=== PATIENT | female | born 1980 | race Caucasian/White ===

== ENCOUNTER → 2016-08-01 | Outpatient (CLI) | payer OTHER ==
[~2016-08-01] MED LIST: CLC100 PO; INSDGI SC; MTR600X PO; OXYC-57 PO; PRENTAB26 PO
== END | disposition home or self-care (01) ==
LOC: C.PAPS 08:44
PROVIDERS: ATTEND Obstetrics & Gynecology
DX: O09.291 Supervision of pregnancy with other poor reproductive or obstetric history, first trimester (principal)

== ENCOUNTER → 2016-08-01 | Outpatient (CLI) | payer OTHER ==
[2016-08-01 17:38] LABS: BASO % 0.2 %; BASO ABS # 0.02 K/uL (0-0.2); COMPLETE YES; EOS % 0.7 %; HEMATOCRIT 36.9 % (37-47); IG% 0.3 %; LYMPH % 24.2 %; LYMPH ABS # 2.42 K/uL (1.2-3.4); MEAN CELL VOLUME 89.6 fL (80-100); MEAN CORPUSCULAR HEMOGLOBIN 31.8 pg (25-34); MEAN CORPUSCULAR HGB CONC 35.5 g/dl (32-36); MEAN PLATELET VOLUME 11.5 fL (7.4-10.4); MONO % 8.3 %; NEUT % 66.3 %; PLATELET COUNT 220 K/uL (130-400); RED BLOOD COUNT 4.12 M/uL (4.2-5.4)
[2016-08-02 10:15] LABS: MANUAL MICROSCOPIC REQUIRED? NO; REVIEW REQ? YES; URINE EPITHELIAL CELL AUTO >30 /lpf (0-5)
[2016-08-02 10:16] LABS: URINE APPEARANCE CLEAR (CLEAR); URINE BILIRUBIN NEG (NEG); URINE COLOR YELLOW; URINE NITRITE NEG (NEG); URINE SPECIFIC GRAVITY 1.022 (1.000-1.030); UROBILINOGEN NEG (NEG)
[2016-08-06 00:18] LABS: CHLAMYDIA TRACH RNA*** NOT DETECTED (NOT DETECTED); GC (NEIS GONORRHOEAE)RNA** NOT DETECTED (NOT DETECTED)
== END | disposition home or self-care (01) ==
LOC: C.LAB1850 16:32
PROVIDERS: ATTEND Obstetrics & Gynecology
DX: O09.521 Supervision of elderly multigravida, first trimester (principal); Z3A.00 Weeks of gestation of pregnancy not specified

== ENCOUNTER → 2016-12-17 | Outpatient (CLI) | payer OTHER ==
[2016-12-17 12:18] LABS: URINE APPEARANCE CLEAR (CLEAR); URINE BILIRUBIN NEG (NEG); URINE COLOR YELLOW; URINE EPITHELIAL CELL AUTO >30 /lpf (0-5); URINE NITRITE NEG (NEG); URINE PH 7.5 (4.5-7.5); URINE SPECIFIC GRAVITY 1.007 (1.000-1.030); UROBILINOGEN NEG (NEG)
[2016-12-17 12:19] LABS: MANUAL MICROSCOPIC REQUIRED? NO; REVIEW REQ? NO
[2016-12-17 12:32] LABS: HEMATOCRIT 35.5 % (37-47)
== END | disposition home or self-care (01) ==
LOC: C.LAB1850 10:15
PROVIDERS: ATTEND Obstetrics & Gynecology
DX: O09.293 Supervision of pregnancy with other poor reproductive or obstetric history, third trimester (principal); Z3A.00 Weeks of gestation of pregnancy not specified

== ENCOUNTER → 2017-02-11 | Outpatient (CLI) | payer OTHER | END | disposition home or self-care (01) | LOC: C.LABSPEC 16:50 | PROVIDERS: ATTEND Obstetrics & Gynecology | DX: O24.414 Gestational diabetes mellitus in pregnancy, insulin controlled (principal) ==

== ENCOUNTER 2017-03-03 05:32 | Inpatient (IN) | payer OTHER ==
[2017-02-28 10:27] VITALS: BMI 33.0
--- NOTE | 2017-02-28 10:47 | PAT Medication Instructions ---
Service Date Feb 28, 2017. Current Home Medication List Insulin Glargine (Lantus), 30 SC QPM Multivit/Min/Iron/Fol Ac/Pren ( Vitamin), 1 TAB PO QAM Medication Instructions For Your Scheduled Surgery - Hold the following medications the morning of surgery: Multivit/Min/Iron/Fol Ac/Pren ( Vitamin), 1 TAB PO QAM - Take the following medications as scheduled the night before surgery: Insulin Glargine (Lantus), 30 SC QPM If you have any questions please call us at [phone] or [phone] or [phone]
[2017-02-28 11:29] LABS: BASO % 0.2 %; BASO ABS # 0.02 K/uL (0-0.2); COMPLETE YES; EOS % 1.1 %; HEMATOCRIT 33.5 % (37-47); IG% 0.6 %; LYMPH ABS # 1.41 K/uL (1.2-3.4); MEAN CELL VOLUME 92.8 fL (80-100); MEAN CORPUSCULAR HEMOGLOBIN 31.6 pg (25-34); MEAN PLATELET VOLUME 11.7 fL (7.4-10.4); MONO % 8.5 %; NEUT % 73.6 %; PLATELET COUNT 168 K/uL (130-400); RED BLOOD COUNT 3.61 M/uL (4.2-5.4); WHITE BLOOD COUNT 8.82 K/uL (4.8-10.8)
--- NOTE | 2017-02-28 12:18 | HISTORY & PHYSICAL EXAMINATION ---
DATE OF ADMISSION: 03/03/2017 Muriel is currently . She is scheduled for repeat section and bilateral the tubal ligation. This is her third and 2 prior sections. She is 39 weeks today. She will be 39 weeks and 3 days on Friday03/03/2017 when she is scheduled. Muriel's has been complicated by gestational diabetes and she is on insulin. Otherwise uncomplicated. PAST MEDICAL HISTORY: Healthy. SURGICAL HISTORY: Two prior C-sections. MEDICATIONS: vitamins, insulin. DRUG ALLERGIES: None. SOCIAL HISTORY: Nonsmoker, nondrinker. FAMILY HISTORY: Noncontributory. REVIEW OF SYSTEMS: Negative. PHYSICAL EXAMINATION: VITAL SIGNS: Vital signs stable. She is afebrile. Weight is 181 pounds. CHEST: Clear. CARDIOVASCULAR: Normal rate and rhythm. No audible murmur. ABDOMEN: Gravid. heart rate tones reactive. IMPRESSION AND PLAN: Reviewed risks, benefits and alternatives to . Discussed risks including bleeding, infection, injury to bowel, bladder, ureter, vessels, deep vein thrombosis and pulmonary embolus. Discussed increased risks of internal organ injury with 2 prior C-sections. The patient wishes a tubal ligation. Discussed permanency of this. Discussed alternatives and discussed failure rates. After full informed consent, will make arrangements for section 03/03/2017.
[2017-03-03] VITALS (14 sets, daily range): BP systolic 101–119; BP diastolic 61–79; PULSE 85–96; TEMP 36.5–36.9; O2SAT 95–100; Ht 157.5 cm; Wt 81.8 kg
[~2017-03-03] VITALS: Ht 157.5 cm; Wt 81.8 kg
[~2017-03-03 05:32] MED LIST changes: -CLC100 PO; -MTR600X PO; -OXYC-57 PO
[2017-03-03] MEDS ORDERED: LACTATED RINGER'S 1000ML 1,000 ML IV SCH ×2 (06:00→07:00)
[2017-03-03] MEDS ORDERED: CEFAZOLIN IV 2,000 MG in DEXTROSE 5% 50ML IV SCH (06:00)
[2017-03-03] MEDS ORDERED: CITRIC ACID/SODIUM CITRATE 15 ML UDC PO ONE (06:00)
[2017-03-03 06:04] LABS: BASO % 0.2 %; BASO ABS # 0.02 K/uL (0-0.2); COMPLETE YES; EOS % 1.2 %; HEMATOCRIT 33.9 % (37-47); IG% 0.8 %; LYMPH % 18.1 %; LYMPH ABS # 1.88 K/uL (1.2-3.4); MEAN CELL VOLUME 91.9 fL (80-100); MEAN CORPUSCULAR HEMOGLOBIN 31.4 pg (25-34); MEAN CORPUSCULAR HGB CONC 34.2 g/dl (32-36); MEAN PLATELET VOLUME 11.6 fL (7.4-10.4); MONO % 9.9 %; NEUT % 69.8 %; PLATELET COUNT 158 K/uL (130-400); RED BLOOD COUNT 3.69 M/uL (4.2-5.4); WHITE BLOOD COUNT 10.38 K/uL (4.8-10.8)
--- NOTE | 2017-03-03 07:09 | History & Physical Bridge Note ---
H&P Re-Evaluation Bridge Note: I have examined the patient, reviewed the History & Physical and in the interval since the performance of the History & Physical I have noted the following changes of clinical significance: No changes noted
[2017-03-03] MEDS ORDERED: FENTANYL CITRATE INJ 50 MCG/1 ML 2 ML VIAL ONE (07:20)
[2017-03-03] MEDS ORDERED: MORPHINE SULFATE PF 2MG/2ML SYR ONE (07:20)
[2017-03-03] MEDS ORDERED: PROMETHAZINE HCL INJ 25 MG in SODIUM CHLORIDE 0.9% 50ML 50 ML IV ONE (07:30)
[2017-03-03] MEDS ORDERED: SCOPOLAMINE 1.5 MG TDSY TD ONE (07:45)
[2017-03-03] MEDS ORDERED: CARBOPROST TROMETHAMINE 250 MCG/ML AMP IM ONE (08:12)
[2017-03-03] MEDS ORDERED: PHENYLEPHRINE HCL INJ 10 MG/ML VIAL ONE (08:43)
[2017-03-03] MEDS ORDERED: EpHEDrine SULFATE 50MG/5ML SYR ONE (08:43)
[2017-03-03] MEDS ORDERED: ONDANSETRON INJ 2 MG/ML 2 ML VIAL ONE (08:43)
[2017-03-03] MEDS ORDERED: CARBOPROST TROMETHAMINE 250 MCG/ML AMP ONE (08:43)
[2017-03-03] MEDS ORDERED: OXYTOCIN INJ 10 UNITS/ML VIAL ONE (08:43)
--- NOTE | 2017-03-03 08:46 | [facility] Post Operative Brief Note ---
Immediate Operative Summary Operative Date Mar 03, 2017. Pre-Operative Diagnosis 1. Repeat Caesarean Section 2. Desires Permanent Sterilization Post-Operative Diagnosis 1. Repeat Lower Uterine Transverse Caesarean Section for the of a viable male child at 0806. 2. Bilateral Tubal Ligation Procedure(s) Performed Same Surgeon Dr. Justice Easement Worker Surgeon(s) Dr. Talavera Estimated Blood Loss 500cc Findings Normal anatomy Specimens 1. Placenta: Hold 2. Arterial and Venous cord blood gases Drains Humphries Anesthesia Spinal Complication(s) None Disposition L&D
[2017-03-03] MEDS ORDERED: DIPHTHERIA/TETANUS/PERTUSSIS 0.5 ML SYR/VIAL IM. ONE (09:00)
[2017-03-03] MEDS ORDERED: SUPERCREAM 0.870 % 15GM JAR EXT PRN (09:00)
[2017-03-03] MEDS ORDERED: SENNA 8.6 MG TAB PO PRN (09:00)
[2017-03-03] MEDS ORDERED: LANOLIN OINT EXT PRN ×2 (09:00)
[2017-03-03] MEDS ORDERED: BENZOCAINE 20% AER SPR 82.5 GM CAN EXT PRN (09:00)
[2017-03-03] MEDS ORDERED: HYDROCORTISONE ACETATE 25 MG SUPP PR PRN (09:00)
[2017-03-03] MEDS ORDERED: KETOROLAC TROMETHAMINE 30 MG/ML VIAL ONE (09:07)
[2017-03-03] MEDS ORDERED: NALOXONE HCL INJ 0.08 MG in SYRINGE 1.8 ML IV PRN (09:21)
[2017-03-03] MEDS ORDERED: NALOXONE HCL INJ 1 MG in SODIUM CHLORIDE 0.9% 1000ML 1,000 ML IV PRN (09:21)
[2017-03-03] MEDS ORDERED: LACTATED RINGER'S 1000ML 500 ML IV PRN (09:21)
[2017-03-03] MEDS ORDERED: SODIUM CHLORIDE 0.9% 1000ML 1,000 ML IV PRN (09:21)
[2017-03-03] MEDS ORDERED: PROMETHAZINE HCL INJ 25 MG in SODIUM CHLORIDE 0.9% 50ML 50 ML IV PRN (09:30)
[2017-03-03] MEDS ORDERED: EpHEDrine SULFATE INJ 50 MG/ML AMP IV PRN (09:30)
[2017-03-03] MEDS ORDERED: ONDANSETRON INJ 2 MG/ML 2 ML VIAL IV PRN (09:30)
[2017-03-03] MEDS ORDERED: MoRPHine SULFATE 2 MG/ML CARP IV PRN (09:30)
[2017-03-03] MEDS ORDERED: MoRPHine SULFATE PF 1 MG/ML 10 ML AMP/VIAL EPI PRN (09:30)
[2017-03-03] MEDS ORDERED: NALOXONE HCL 0.4 MG/1 ML VIAL/CARP IV PRN (09:30)
[2017-03-03] MEDS ORDERED: NALBUPHINE HCL INJ 10 MG/ML AMP IV PRN (09:30)
[2017-03-03] MEDS ORDERED: DiphenhydrAMINE HCL 50 MG/ML VIAL IV PRN (09:30)
[2017-03-03] MEDS ORDERED: NO NARCOTICS OR SEDATIVES SCH (09:30)
--- NOTE | 2017-03-03 09:51 | OPERATIVE REPORT ---
DATE OF OPERATION: 03/03/2017 PREOPERATIVE DIAGNOSES: Repeat section, desires permanent sterilization. POSTOPERATIVE DIAGNOSES: Same. PROCEDURE: Repeat low transverse section and bilateral tubal ligation. SURGEON: Dr. Justice. VISUAL MANAGER: Dr. Talavera. ESTIMATED BLOOD LOSS: 500 mL FINDINGS: Normal uterine and adnexal anatomy. SPECIMENS: Placenta and blood gases. DRAINS: Humphries catheter. ANESTHETIC: Spinal. COMPLICATIONS: None. DISPOSITION: Labor and delivery. Reviewed with Muriel prior to procedure, she wished to proceed with tubal. She was taken to the operating room, given a spinal anesthetic. Humphries catheter placed in her bladder, placed in supine position with a leftward tilt. We then tested with pickups and teeth and found to be adequate. Using the previous Pfannenstiel, we cut this with the scalpel, cutting down through subcutaneous fat to the fascia in the midline, fascia then cut laterally with curved Campbell scissors. Fascia then released superiorly and inferiorly from the rectus muscles. Rectus muscle split. Peritoneal cavity entered in a superior location. Once inside, we then expanded the peritoneal cavity incision to allow exposure. Bladder retractor placed. Metzenbaums used to dissect away the bladder flap. Low transverse incision made with scalpel. Entry was done with the hemostat prior to breaking membranes. Head was floating high in the pelvis. Rupture was performed, the head still remained high in the pelvis, so we did attach a vacuum and used bandage scissors to enlarge the uterine hysterotomy site. Then, baby was delivered without difficulty by pressing on the abdomen and vacuum. Vacuum was removed after delivery of the head. Mouth and then nares suctioned off clear fluid. No nuchal cord. Baby was delivered with gentle traction, no excessive force, a live vigorous male . Cord clamped and cut, cord gases obtained, cord blood obtained. Placenta removed. Uterus exteriorized. IV Pitocin started. Please note too, IV antibiotics were given prior to the start of the procedure. Uterus was then closed in the usual fashion, a running 0 Vicryl locked and a second 0 Vicryl nonlocked. At this stage, there was somewhat bogginess of the uterus, so we did inject 0.25 mg of Hemabate into the uterus, made care to avoid intravascular injection. At this stage, uterine tone improved. We then performed the tubal by grabbing the right isthmic portion of the tube with a Liat, tying it twice with 0 chromic and then cutting a section of right fallopian tube off. Same process on the left. Hemostasis was excellent. After suction irrigation of the cul-de-sac and bladder flap regions, uterus was placed back in the peritoneal cavity, reinspected the tubal ligation sites and also the incision site, and all were hemostatic. Rectus muscles reapproximated with 0 Vicryl, fascia closed with 0 Vicryl, subcutaneous fat irrigated and closed with 3-0 Vicryl, skin closed with 4-0 subcuticular Monocryl. Sponge and instrument counts correct. I attest to the content of the Intraoperative Record and any orders documented therein. Any exceptions are noted below. MTDD
[2017-03-03] MEDS: ACETAMINOPHEN 1000 MG/100 ML IV IV PRN ×2 (10:36→19:17)
[2017-03-03] MEDS: OXYTOCIN INJ 20 UNITS in LACTATED RINGER'S 1000ML 1,000 ML IV SCH ×2 (11:48→19:12)
[2017-03-03] MEDS: SIMETHICONE 80 MG CHEW PO SCH ×3 (13:56→20:47)
[2017-03-03] MEDS: KETOROLAC TROMETHAMINE 30 MG/ML VIAL IV. PRN ×2 (14:47→21:06)
[2017-03-03] MEDS: CHECK SCOPOLAMINE PATCH PLACEMENT SCH (16:00)
[2017-03-03] MEDS: DOCUSATE SODIUM 100 MG CAP PO SCH (20:48)
[2017-03-04] VITALS (10 sets, daily range): BP systolic 97–110; BP diastolic 59–67; PULSE 90–97; TEMP 36.6–37.3; O2SAT 91–97
[2017-03-04] MEDS: KETOROLAC TROMETHAMINE 30 MG/ML VIAL IV. PRN (06:17)
[2017-03-04 06:19] LABS: BASO % 0.1 %; BASO ABS # 0.01 K/uL (0-0.2); COMPLETE YES; EOS % 0.5 %; HEMATOCRIT 26.4 % (37-47); IG% 0.3 %; LYMPH % 10.4 %; LYMPH ABS # 1.04 K/uL (1.2-3.4); MEAN CORPUSCULAR HEMOGLOBIN 31.4 pg (25-34); MEAN CORPUSCULAR HGB CONC 34.1 g/dl (32-36); MEAN PLATELET VOLUME 11.3 fL (7.4-10.4); MONO % 7.3 %; NEUT % 81.4 %; PLATELET COUNT 126 K/uL (130-400); RED BLOOD COUNT 2.87 M/uL (4.2-5.4); WHITE BLOOD COUNT 9.99 K/uL (4.8-10.8)
--- NOTE | 2017-03-04 06:50 | Progress Note ---
Subjective Mar 04, 2017. Subjective conversation w/ patient, physical exam, chart review, lab review Ambulation: limited ambulation (minimal out of bed thus far) Voiding: villa catheter in place Passing Gas: Yes (pt unsure) Diet Tolerance: Clear Liquids Lochia: Small Feeding Type: Breast Feeding Pain: Sore at incision site Comment: Found pt sitting up, overall comfortable. Says has frontal MYRICK similar to prior migraines. Only other c/o is soreness at incision site. Otherwise no acute c/ o. Review of Systems Constitutional: No fever, No chills Respiratory: No cough, No shortness of breath Cardiac: No chest pain, No edema Abdomen: No nausea, No vomiting, No diarrhea Objective Vital Signs Date Time Temp Pulse Resp B/P (MAP) Pulse Ox O2 Delivery O2 Flow Rate FiO2 03/04/17 06:15 18 93 03/04/17 05:15 18 94 03/04/17 04:15 18 91 03/04/17 03:30 37.3 90 18 97/59 (72) 95 Room Air 03/04/17 03:00 18 95 03/04/17 02:01 18 92 03/04/17 01:00 18 94 03/04/17 00:00 18 95 03/03/17 23:55 95 Room Air 03/03/17 23:55 36.9 86 18 102/61 (75) 95 Room Air 03/03/17 22:40 16 95 03/03/17 21:30 16 95 03/03/17 20:30 20 97 03/03/17 19:30 36.9 96 20 109/64 (79) 100 Room Air 03/03/17 19:30 20 100 03/03/17 18:24 18 99 03/03/17 17:30 18 98 03/03/17 16:28 18 98 03/03/17 15:30 20 99 03/03/17 14:45 36.7 86 18 103/79 (87) 100 Room Air 03/03/17 14:45 100 Room Air 03/03/17 14:30 18 100 03/03/17 13:30 18 99 03/03/17 12:20 36.6 92 18 101/63 (76) 99 Room Air 03/03/17 12:20 18 99 03/03/17 11:30 100 Room Air 03/03/17 11:30 36.5 85 20 119/64 (82) 100 Room Air 03/03/17 11:30 20 100 Physical Exam General Appearance: WELL-APPEARING, WD/WN, NO APPARENT DISTRESS Respiratory/Chest: lungs clear, normal breath sounds, no respiratory distress Cardiovascular: regular rate, rhythm, no murmur Abdomen: normal bowel sounds, non tender, soft Fundus: Firm, Tender, Relation to Umbilicus (at umbilicus) Incision Description: Clean, Dry & Intact (dressing in place) Extremities: normal range of motion, non-tender, no calf tenderness, + pedal edema (Minimal bilaterally) Laboratory Results Last 24 Hours Test 03/04/17 05:59 White Blood Count 9.99 K/uL Red Blood Count 2.87 M/uL Hemoglobin 9.0 g/dL Hematocrit 26.4 % Mean Corpuscular Volume 92.0 fL Mean Corpuscular Hemoglobin 31.4 pg Mean Corpuscular Hemoglobin Concent 34.1 g/dl Platelet Count 126 K/uL Mean Platelet Volume 11.3 fL Neutrophils (%) (Auto) 81.4 % Lymphocytes (%) (Auto) 10.4 % Monocytes (%) (Auto) 7.3 % Eosinophils (%) (Auto) 0.5 % Basophils (%) (Auto) 0.1 % Neutrophils # (Auto) 8.13 K/uL Lymphocytes # (Auto) 1.04 K/uL Monocytes # (Auto) 0.73 K/uL Eosinophils # (Auto) 0.05 K/uL Basophils # (Auto) 0.01 K/uL RDW Standard Deviation 48.2 fL RDW Coefficient of Variation 14.3 % Immature Granulocyte % (Auto) 0.3 % Immature Granulocyte # (Auto) 0.03 K/uL Assessment and Plan Post-Op Day#: 1 Continue Routine Care: 37F s/p scheduled repeat and bilateral tubal ligation, now PPD #1. - Blood type A positive. GBS negative. Rubella immune. - Vital signs reviewed and stable. - Pain controlled with tylenol & toradol. - No leg swelling or tenderness on calf palpation. SCD's in place. Encourage ambulation once villa out. - Encourage breast feeding. - Hemoglobin pre-delivery 11.6, post-delivery 9.0. Bleeding has improved. Continue to monitor clinically. - Continue routine post delivery care. - Pt agreed with above plan, all current questions answered. Mehul Ross MD, PGY1 Humanities Teacher Physician Supervision Note: I interviewed and examined the patient. Discussed with Dr. Ross and agree with findings and plan as documented in the note. Any exceptions or clarifications are listed here: [None] Documented By: Reilly Justice Resident Tracking Resident Involvement: Resident Care Provided Care Provided: OB Delivery (OB rounds)
--- NOTE | 2017-03-04 07:32 | Anesthesiology Progress Note ---
Anesthesia Post Op Note Date & Time Mar 04, 2017 at 07:32 Vital Signs Pain Intensity: 2.0 Vital Signs Past 12 Hours Date Time Temp Pulse Resp B/P (MAP) Pulse Ox O2 Delivery O2 Flow Rate FiO2 03/04/17 06:15 18 93 03/04/17 05:15 18 94 03/04/17 04:15 18 91 03/04/17 03:30 37.3 90 18 97/59 (72) 95 Room Air 03/04/17 03:00 18 95 03/04/17 02:01 18 92 03/04/17 01:00 18 94 03/04/17 00:00 18 95 03/03/17 23:55 95 Room Air 03/03/17 23:55 36.9 86 18 102/61 (75) 95 Room Air 03/03/17 22:40 16 95 03/03/17 21:30 16 95 03/03/17 20:30 20 97 Notes Mental Status: alert / awake / arousable, participated in evaluation Pt Amnestic to Procedure: Yes Nausea / Vomiting: adequately controlled Pain: adequately controlled Airway Patency, RR, SpO2: stable & adequate BP & HR: stable & adequate Hydration State: stable & adequate Neuraxial Anesthesia: was administered, sensory block resolved Anesthetic Complications: no major complications apparent
[2017-03-04] MEDS ORDERED: DC INTRASPINAL MORPHINE ONE ×2 (08:00→08:30)
[2017-03-04] MEDS: CHECK SCOPOLAMINE PATCH PLACEMENT SCH ×2 (08:00→16:30)
[2017-03-04] MEDS ORDERED: DiphenhydrAMINE HCL 50 MG/ML VIAL IV PRN (08:00)
[2017-03-04] MEDS ORDERED: PROMETHAZINE HCL INJ 25 MG in SODIUM CHLORIDE 0.9% 50ML 50 ML IV PRN (08:00)
[2017-03-04] MEDS ORDERED: ONDANSETRON INJ 2 MG/ML 2 ML VIAL IV PRN (08:00)
[2017-03-04] MEDS ORDERED: KETOROLAC TROMETHAMINE 30 MG/ML VIAL IV. PRN (08:00)
[2017-03-04] MEDS ORDERED: OXYCODONE/ACETAMINOPHEN 5-325 TAB PO PRN (08:00)
[2017-03-04] MEDS: SIMETHICONE 80 MG CHEW PO SCH ×4 (09:26→19:59)
[2017-03-04] MEDS: PRENATAL VITAMIN TAB PO SCH (09:55)
[2017-03-04] MEDS: DOCUSATE SODIUM 100 MG CAP PO SCH ×2 (09:55→19:59)
[2017-03-04] MEDS: FERROUS SULFATE 325 MG TAB PO SCH (09:55)
[2017-03-04] MEDS: MAGNESIUM HYDROXIDE SUSP 30 ML UDC PO PRN (12:06)
[2017-03-04] MEDS: IBUPROFEN 600 MG TAB PO PRN ×2 (12:07→21:25)
[2017-03-04] MEDS: OXYCODONE/ACETAMINOPHEN 5-325 TAB PO PRN ×2 (14:55→22:22)
[2017-03-04] MEDS ORDERED: BISACODYL 5 MG TABEC ONE (19:41)
[2017-03-04] MEDS ORDERED: BISACODYL 5 MG TABEC PO ONE (22:00)
[2017-03-05 00:40] VITALS: BP 101/64; PULSE 87; TEMP 36.7; O2SAT 99
--- NOTE | 2017-03-05 06:32 | Progress Note ---
Subjective Mar 05, 2017. Subjective conversation w/ patient, physical exam, chart review, lab review Ambulation: ambulating normally Voiding: no voiding problems, villa catheter in place Passing Gas: Yes Diet Tolerance: Regular Diet Lochia: Small Feeding Type: Breast Feeding Pain: Sore around incision site & low abdomen Comment: Found pt resting comfortably, soreness as noted above, and no acute concerns. Review of Systems Constitutional: No fever, No chills Respiratory: No cough, No shortness of breath Cardiac: No chest pain Abdomen: No nausea, No vomiting, No diarrhea Female : No dysuria Objective Vital Signs Date Time Temp Pulse Resp B/P (MAP) Pulse Ox O2 Delivery O2 Flow Rate FiO2 03/05/17 00:40 36.7 87 18 101/64 (76) 99 Room Air 03/05/17 00:40 99 Room Air 03/04/17 16:30 36.7 97 18 101/59 (73) 97 Room Air 03/04/17 16:30 97 Room Air 03/04/17 08:40 36.6 96 16 110/67 (81) 97 Room Air 03/04/17 08:40 Room Air Physical Exam General Appearance: WELL-APPEARING, WD/WN, NO APPARENT DISTRESS Respiratory/Chest: lungs clear, normal breath sounds, no respiratory distress Cardiovascular: regular rate, rhythm, no murmur Abdomen: normal bowel sounds, non tender, soft Fundus: Firm, Tender, Relation to Umbilicus (approx two down) Incision Description: Clean, Dry & Intact (steristrips in place, approx one cm area of serous discoloration, no bleeding, no surrounding erythema) Extremities: non-tender, no calf tenderness, + pedal edema (minimal bilaterally , SCD's in place) Laboratory Results Last 24 Hours Test 03/05/17 06:00 Assessment and Plan Post-Op Day#: 2 Continue Routine Care: 37F s/p scheduled repeat and bilateral tubal ligation, now PPD #2. - Blood type A positive. GBS negative. Rubella immune. - Vital signs reviewed and stable. - Pain controlled with motrin & percocet. - Minimal LE swelling and no tenderness on calf palpation. Encourage ambulation. - Encourage breast feeding. - Hemoglobin pre-delivery 11.4, post-delivery 9.0. Bleeding improving. Continue to monitor clinically. - Continue routine post delivery care. - Pt agreed with above plan, all current questions answered. Mehul Ross MD, PGY1 Slubber Operator Physician Supervision Note: I interviewed and examined the patient. Discussed with Dr. Ross and agree with findings and plan as documented in the note. Any exceptions or clarifications are listed here: Fundus appropriately tender for postop. Doing well for day two. Baby on CPAP. Documented By: Donna Lopes Resident Tracking Resident Involvement: Resident Care Provided Care Provided: OB Delivery (OB rounds)
[2017-03-05 07:27] LABS: HEMATOCRIT 25.4 % (37-47)
[2017-03-05 08:00] VITALS: BP 100/63; PULSE 89; TEMP 36.4
[2017-03-05] MEDS ORDERED: DC INTRASPINAL MORPHINE ONE (08:00)
[2017-03-05] MEDS: CHECK SCOPOLAMINE PATCH PLACEMENT SCH ×3 (08:30→15:53)
[2017-03-05] MEDS: FERROUS SULFATE 325 MG TAB PO SCH (08:36)
[2017-03-05] MEDS: SIMETHICONE 80 MG CHEW PO SCH ×4 (08:36→20:15)
[2017-03-05] MEDS: DOCUSATE SODIUM 100 MG CAP PO SCH ×2 (08:36→20:15)
[2017-03-05] MEDS: PRENATAL VITAMIN TAB PO SCH (08:36)
[2017-03-05] MEDS: IBUPROFEN 600 MG TAB PO PRN ×2 (08:37→15:53)
[2017-03-05] MEDS ORDERED: BISACODYL 10 MG SUPP PR PRN (09:00)
[2017-03-05 16:30] VITALS: BP 103/64; PULSE 64; TEMP 36.7; O2SAT 98
[2017-03-05] MEDS: MAGNESIUM HYDROXIDE SUSP 30 ML UDC PO PRN (16:41)
[2017-03-05] MEDS: OXYCODONE/ACETAMINOPHEN 5-325 TAB PO PRN (18:48)
[2017-03-06 01:15] VITALS: BP 102/65; PULSE 91; TEMP 36.6; O2SAT 97
[2017-03-06] MEDS: IBUPROFEN 600 MG TAB PO PRN ×3 (01:25→15:13)
--- NOTE | 2017-03-06 06:49 | Progress Note ---
Subjective Mar 06, 2017. Subjective conversation w/ patient, physical exam, chart review, lab review Ambulation: ambulating normally Voiding: no voiding problems, villa catheter in place Passing Gas: Yes Diet Tolerance: Regular Diet Lochia: Small Feeding Type: Breast Feeding Pain: Ongoing pain around incision site, unchanged from yesterday Comment: Found pt resting comfortably, says she feels mostly unchanged from yesterday, pain still controlled with PO meds. No acute concerns. Review of Systems Constitutional: No fever, No chills Respiratory: No cough, No shortness of breath Cardiac: No chest pain Abdomen: No nausea, No vomiting, No diarrhea Female : No dysuria Objective Vital Signs Date Time Temp Pulse Resp B/P (MAP) Pulse Ox O2 Delivery O2 Flow Rate FiO2 03/06/17 01:15 36.6 91 18 102/65 (77) 97 Room Air 03/06/17 01:15 97 Room Air 03/05/17 16:30 98 Room Air 03/05/17 16:30 36.7 64 18 103/64 (77) 98 Room Air 03/05/17 09:30 Room Air 03/05/17 08:00 36.4 89 18 100/63 (75) Room Air Physical Exam General Appearance: WELL-APPEARING, WD/WN, NO APPARENT DISTRESS Respiratory/Chest: lungs clear, normal breath sounds, no respiratory distress Cardiovascular: regular rate, rhythm, no murmur Abdomen: normal bowel sounds, non tender, soft Fundus: Firm, Tender (minimally improved from yesterday), Relation to Umbilicus (approx one down) Incision Description: Clean, Dry & Intact (steristrips in place, no active d/c or bleeding, no surrounding erythema) Extremities: normal range of motion, no calf tenderness, + pedal edema ( minimal bilaterally) Laboratory Results Last 24 Hours Test 03/05/17 06:57 Hemoglobin 8.6 g/dL Hematocrit 25.4 % Assessment and Plan Post-Op Day#: 3 Continue Routine Care: 37F s/p scheduled repeat and bilateral tubal ligation, now PPD #3. - Blood type A positive. GBS negative. Rubella immune. - Vital signs reviewed and stable. - Pain controlled with motrin and percocet. - Minimal leg swelling (unchanged) and no tenderness on calf palpation. Encourage ambulation. - Encourage breast feeding. - Hemoglobin pre-delivery 11.4, post-delivery 9.0. Bleeding still improving. Continue to monitor clinically. - Continue routine post delivery care. - Pt agreed with above plan, all current questions answered. Mehul Ross MD, PGY1 Scrub Woman Physician Supervision Note: I interviewed and examined the patient. Discussed with Dr. Ross and agree with findings and plan as documented in the note. Any exceptions or clarifications are listed here: [None] Documented By: Julio Santana Resident Tracking Resident Involvement: Resident Care Provided Care Provided: OB Delivery (OB rounds)
[2017-03-06] MEDS ORDERED: OXYC-57 PO (07:14)
[2017-03-06] MEDS ORDERED: MTR600X PO (07:14)
[2017-03-06 07:58] VITALS: BP 109/72; PULSE 82; TEMP 36.7; O2SAT 98
[2017-03-06] MEDS: PRENATAL VITAMIN TAB PO SCH (08:33)
[2017-03-06] MEDS: SIMETHICONE 80 MG CHEW PO SCH ×4 (08:33→19:47)
[2017-03-06] MEDS: DOCUSATE SODIUM 100 MG CAP PO SCH ×2 (08:33→19:47)
[2017-03-06] MEDS: FERROUS SULFATE 325 MG TAB PO SCH (08:33)
[2017-03-06] MEDS: OXYCODONE/ACETAMINOPHEN 5-325 TAB PO PRN ×2 (10:25→15:13)
[2017-03-06 16:30] VITALS: BP 107/73; PULSE 81; TEMP 36.5; O2SAT 99
[2017-03-06] MEDS: MAGNESIUM HYDROXIDE SUSP 30 ML UDC PO PRN (19:51)
[2017-03-07 00:15] VITALS: BP 114/75; PULSE 93; TEMP 36.7; O2SAT 98
[2017-03-07] MEDS: IBUPROFEN 600 MG TAB PO PRN ×3 (00:18→15:37)
[2017-03-07] MEDS: OXYCODONE/ACETAMINOPHEN 5-325 TAB PO PRN ×3 (00:19→15:37)
--- NOTE | 2017-03-07 06:38 | Discharge Instructions ---
Discharge Instructions Date of Service Mar 07, 2017. Admission Reason for Admission: Previous Section Discharge Discharge Diagnosis / Problem: after surgery Discharge Goals Goal(s): Routine recovery after Medications Continue Dispensed Medications: supercream, dermaplast, tucks, lansinoh Activity Recommendations Activity Limitations: as noted below . Instructions / Follow-Up Instructions / Follow-Up ACTIVITY RECOMMENDATIONS: * Gradual return to full activity over the next 2-3 weeks. * No lifting - nothing heavier than baby over the next 2-3 weeks. * Do not engage in vigorous exercise, sexual activity or sports until cleared by your physician. * Do not drive or operate any motorized equipment until cleared by your physician. * You may shower/bathe daily. MEDICATIONS: For discomfort or pain, you may use Acetaminophen (Tylenol), Ibuprofen (Advil), or Naproxen (Aleve) following the package directions. For constipation you may use Colace following the package directions. BREAST CARE: If you are not breast feeding: * Wear a supportive bra 24 hours a day for one to two weeks. * Avoid stimulating your breasts and nipples as much as possible during the first few weeks after delivery. * When taking a shower, have the warm water hit your back, not breasts. * When your breasts feel full, apply ice packs. Usually three to four times a day helps ease the discomfort. * Take a mild pain medication (Tylenol / Motrin) when you are uncomfortable. If breast feeding: * Use breast milk to lubricate nipples. Lansinoh cream may be used for sore nipples. You do not need to remove cream prior to breast feeding. If using a different brand of cream, check the label for directions regarding removal of cream prior to nursing. * Wear a supportive bra. * If having problems with breasts or breast feeding, call a corporate consultant or your health care provider. SPECIAL CARE INSTRUCTIONS: When you are discharged from the hospital, it is important for you to follow the instructions listed below: * During the first week at home, you should be able to care for yourself and your baby. In addition, the usual light household activities are encouraged. * Limit your activities to the way you feel. Do not try to clean the house or move furniture. Be sensible. * If you actively engage in sports and have done so up until the time of your delivery, you may resume these activities as soon as you feel able. This may take up to one month or even longer. Use good judgment. * Continue to take your vitamins for at least six weeks after the of your baby. * Your diet need not be limited unless you were on a special diet before your delivery. Breast-feeding mothers need around 2500 calories per day and at least 64-80 ounces of fluid per day (8 to 10 glasses). * You should eat foods from the four major food groups. Crash diets or fad diets are to be avoided. Eating lean meats, fresh fruits and vegetables, low-fat dairy products, high fiber foods and a regular exercise program, will help you get back to your pre- weight without putting your health at risk. * Constipation is sometimes a problem after delivery. Take a mild laxative as needed. If breast feeding, Milk of Magnesia is acceptable to use. You may use a suppository or Fleets enema. * A daily shower or tub bath is suggested. Wash incision daily with warm soapy water and pat dry. It doesn't need to be covered unless drainage is present. * A bloody vaginal discharge will usually continue until around four weeks . A small amount of bleeding may continue for as long as six weeks. Vaginal discharge changes from the bright red bleeding after delivery to pink then brownish and finally yellowish-pink before becoming white and disappearing. * Bleeding may increase with activity. Your first period may come in 4-8 weeks. If you are breast feeding, your period may be delayed even longer. * [place] (sex) can begin whenever both you and your partner feel comfortable and do not have any form of genital infection. It is recommended that you wait at least six weeks for internal and external healing to occur. If you have questions, please talk to your health care practitioner. A condom should be used to prevent infection and . * Foreplay, gentle intercourse and lubrication is very important the first several times to prevent pain. A water-based lubricant such as K-Y jelly or Astroglide may be used. * If you have RH negative blood and your baby is RH positive, you will receive RHOGAM by injection prior to discharge. The nurse will give you a card to keep with you that has the date and place that you received RHOGAM after delivery. * During your care, you had a Rubella screen done to check for the presence of rubella antibodies in your blood. If your test was negative, you will receive a Rubella vaccine prior to discharge. This vaccine may cause a fever, soreness at the injection site and flu-like symptoms. If these symptoms persist, notify your health care practitioner. is not advised for one month after a Rubella vaccine. * Verbalizes understanding of car seat law as reviewed with patient nursing. * Car Seat hand-out given and reviewed with patient by nursing. * Shaken baby information reviewed with patient by nursing. Call you doctor if: * Heavy bleeding (saturating several pads an hour) or passing clots the size of your fist. * A fever >101 degrees F (38.3 degrees C) on two occasions four hours apart and /or chills. * Unusual pain in the pelvic or vaginal areas. * Call the doctor for any increased redness, drainage or swelling around the incision and any pain unrelieved by prescribed pain medication. * "Baby Blues" lasting longer than two weeks. If you have any questions or concerns, call your health care practitioner at . FOLLOW UP VISIT: * Please call the office at to schedule a 6 week examination. It is important you keep this appointment. It is important for you to make arrangements for either yearly or twice yearly check-ups thereafter. Current Hospital Diet Patient's current hospital diet: Regular Diet Discharge Diet Recommended Diet: Regular Diet Procedures Procedures Performed: Same Pending Studies Studies pending at discharge: no Medical Emergencies . Who to Call and When: Medical Emergencies: If at any time you feel your situation is an emergency, please call [phone] immediately. . Non-Emergent Contact Non-Emergency issues call your: Racehorse Trainer . . "Provider Documentation" section prepared by Raegan Flores. . VTE Core Measure Inpt VTE Proph given/why not?: SCD's
--- NOTE | 2017-03-07 06:39 | Progress Note ---
Subjective Mar 07, 2017. Subjective conversation w/ patient, physical exam, chart review, lab review Ambulation: ambulating normally Voiding: no voiding problems, villa catheter in place Passing Gas: Yes Diet Tolerance: Regular Diet Lochia: Small Feeding Type: Breast Feeding Pain: Says still sore around incision site, mostly unchanged Comment: Found pt resting comfortably, says no particular changes over past 24 hours, and no acute concerns. Review of Systems Constitutional: No fever, No chills Respiratory: No cough, No shortness of breath Cardiac: No chest pain Abdomen: No nausea, No vomiting, No diarrhea Female : No dysuria Objective Vital Signs Date Time Temp Pulse Resp B/P (MAP) Pulse Ox O2 Delivery O2 Flow Rate FiO2 03/07/17 00:15 Room Air 03/07/17 00:15 36.7 93 20 114/75 (88) 98 Room Air 03/06/17 16:30 36.5 81 16 107/73 (84) 99 Room Air 03/06/17 16:30 Room Air 03/06/17 07:58 36.7 82 18 109/72 (84) 98 Room Air 03/06/17 07:30 Room Air Physical Exam General Appearance: WELL-APPEARING, WD/WN, NO APPARENT DISTRESS Respiratory/Chest: lungs clear, normal breath sounds, no respiratory distress Cardiovascular: regular rate, rhythm, no murmur Abdomen: normal bowel sounds, non tender, soft Fundus: Firm, Tender, Relation to Umbilicus (approx three down) Incision Description: Clean, Dry & Intact (steristrips in place, no present d/c , no surrounding erythema) Extremities: normal range of motion, no calf tenderness (with TEDS on bilaterally), + pedal edema (minimal bilaterally) Assessment and Plan Post-Op Day#: 4 Continue Routine Care: 37F s/p scheduled repeat and bilateral tubal ligation, now PPD #4. - Blood type A positive. GBS negative. Rubella immune. - Vital signs reviewed and stable. - Pain controlled with motrin and percocet. - Minimal leg swelling and no tenderness on calf palpation. Pt has been ambulating. - Encourage breast feeding. - Hemoglobin pre-delivery 11.4, post-delivery trend to 8.6. Bleeding remains stable/improving. Continue to monitor clinically. - Continue routine post delivery care. - Pt agreed with above plan, all current questions answered. Mehul Ross MD, PGY1 Applied Anthropologist Physician Supervision Note: I interviewed and examined the patient. Discussed with Dr. Ross and agree with findings and plan as documented in the note. Any exceptions or clarifications are listed here: Doing well, ambulating, pain well controlled, voiding, eating. Will d/c to nesting. Already had scripts filled. aware of d/c instructions and f/u 6wks pp check. Documented By: Raegan Flores Resident Tracking Resident Involvement: Resident Care Provided Care Provided: OB Delivery (OB rounds)
[2017-03-07] MEDS: FERROUS SULFATE 325 MG TAB PO SCH (08:25)
[2017-03-07] MEDS: PRENATAL VITAMIN TAB PO SCH (08:26)
[2017-03-07] MEDS: SIMETHICONE 80 MG CHEW PO SCH ×2 (08:26→12:10)
[2017-03-07] MEDS: DOCUSATE SODIUM 100 MG CAP PO SCH (08:26)
[2017-03-07 09:45] VITALS: BP 117/78; PULSE 83; TEMP 36.9; O2SAT 97
--- NOTE | 2017-03-07 09:59 | DISCHARGE SUMMARY ---
Muriel had a section on 03/03/2017. This was a repeat section and bilateral tubal ligation. The procedure was uncomplicated. Course in hospital was uncomplicated. By postop day 4, 03/07/2017, she met discharge criteria. She was assessed by the SENIOR MECHANICAL ENGINEER team. At that time, she was ambulating well, passing flatus, minimal bleeding. Pain was well controlled and had no extremity pain. PHYSICAL EXAMINATION: VITAL SIGNS: Stable. She is afebrile. CHEST: Clear. CARDIOVASCULAR: Normal rate and rhythm. No audible murmur. ABDOMEN: Benign. Uterus nontender. Incision clean, dry and intact. EXTREMITIES: Negative. LABORATORYA DATA: Her hemoglobin is 8.6. IMPRESSION AND PLAN: Postop day #4, discharge criteria met. Discharge home on appropriate pain medication and told to follow up in the office. Discharge instructions given as well.
[2017-03-07 16:00] VITALS: BP 118/78; PULSE 82; TEMP 36.8
[2017-03-07 17:45] VITALS: BP_DIAS 78; PULSE 82; TEMP 36.8
== END 2017-03-07 17:45 | disposition home or self-care (01) | DRG 766 ==
LOC: C.LD 05:32 → EDSTATUS 07:30 → C.OBG 11:26
PROVIDERS: ADMIT Obstetrics & Gynecology; ATTEND Obstetrics & Gynecology
PROC: 0UL77ZZ Occlusion of Bilateral Fallopian Tubes, Via Natural or Artificial Opening (ICD-10-PCS; principal; 2017-03-03 07:30)
PROC: 10D00Z1 Extraction of Products of Conception, Low, Open Approach (ICD-10-PCS; principal; 2017-03-03 07:30)
DX: O34.219 Maternal care for unspecified type scar from previous cesarean delivery (principal); Z3A.39 39 weeks gestation of pregnancy; Z37.0 Single live birth